=== PATIENT | female | born 1990 ===

== ENCOUNTER 2018-12-18 07:45 | Outpatient (CLI) | payer OTHER | END 2018-12-18 07:46 | disposition home or self-care (01) | LOC: SONOGRAMA 07:45 | DX: E04.2 Nontoxic multinodular goiter (principal) ==

== ENCOUNTER 2025-05-12 09:00 | Outpatient (CLI) | payer OTHER | END 2025-05-12 09:11 | disposition home or self-care (01) | LOC: SONOGRAMA 09:00 | PROVIDERS: ATTEND Student in an Organized Health Care Education/Training Program | DX: N60.11 Diffuse cystic mastopathy of right breast (principal); N60.12 Diffuse cystic mastopathy of left breast; R10.2 Pelvic and perineal pain ==